=== PATIENT | female | born 1945 | race Hispanic/Latino ===

== ENCOUNTER → 2018-05-17 | Outpatient (CLI) | payer MEDICARE, OTHER ==
[~2018-05-17] MED LIST: IOPAMIDOL 370 MG/ML 200 ML INFUS..BTL INJ ONE; SODIUM CHLORIDE 0.9% 50ML 50 ML ONE
[2018-05-17 09:28] LABS: BLOOD UREA NITROGEN 11 mg/dL (7-26); BUN/CREATININE RATIO 13 (6-25); CREATININE, SERUM 0.82 mg/dL (0.57-1.11); EST GLOMERULAR FILTRATION RATE > 60 ML/MIN (60-)
--- NOTE | 2018-05-17 11:31 | Diagnostic Imaging Report ---
EXAMINATION: CT of the abdomen with and without contrast. TECHNIQUE: Spiral CT images of the abdomen were performed from the lung bases to the iliac crests before and after the intravenous administration of 100 cc of Isovue-[id number]. Delayed phase images were obtained per adrenal mass protocol.. Coronal and sagittal reformatted images were obtained. COMPARISON: CT abdomen and pelvis without contrast 07/01/2015 CLINICAL HISTORY:Neoplasm of adrenal gland DISCUSSION: LOWER THORAX:Unremarkable. HEPATOBILIARY: No focal hepatic lesions. No biliary ductal dilatation. The gallbladder is normal. SPLEEN: No splenomegaly. PANCREAS: No focal masses or ductal dilatation. ADRENALS: As before, there is a well-circumscribed nodule arising from the lateral limb of the left adrenal gland, containing internal macroscopic fat as seen on series 5 image 25. On the current examination the lesion measures 1.9 cm AP x 1.6 cm transverse x 1.4 cm craniocaudal (previously 1.9 cm AP x 1.5 cm transverse x 1.4 cm craniocaudal). No new adrenal lesions. KIDNEYS/URETERS: No hydronephrosis, stones, or solid mass lesions. PERITONEUM/RETROPERITONEUM: No free air or fluid. LYMPH NODES: No mesenteric root or upper retroperitoneal lymphadenopathy. VESSELS: Atherosclerotic calcification of the abdominal aorta and major branch vessels without aneurysmal dilatation. Portal vein and splenic vein are patent. GI TRACT: Visualized portions of the small and large bowel shows no distention or wall thickening BONES AND SOFT TISSUE: No osseous destructive lesions. Multilevel degenerative disc changes and facet arthropathy of the lumbar spine IMPRESSION: Previously described benign left adrenal myelolipoma is stable in size relative to 07/01/2015 when accounting for differences in slice selection (1.9 cm in greatest dimension). Signed by: Dr. Kiko uDmont M.D. on 05/17/2018 11:28 AM
== END ==
LOC: CT 08:19
PROVIDERS: ATTEND Urology
DX: D44.10 Neoplasm of uncertain behavior of unspecified adrenal gland (principal)
CPT/HCPCS: 36415; 74170; 82565; 84520; Q9967

== ENCOUNTER → 2018-11-07 | Outpatient (CLI) | payer MEDICARE, OTHER ==
--- NOTE | 2018-11-07 16:28 | Diagnostic Imaging Report ---
EXAM: CT Abdomen and Pelvis WITHOUT intravenous contrast INDICATION: Follow-up of adrenal lesion COMPARISON: CT abdomen and pelvis of 05/17/2018, 07/01/2015 TECHNIQUE: Abdomen and pelvis were scanned utilizing a multidetector helical scanner from the lung base to the pubic symphysis without administration of IV contrast. Coronal and sagittal reformations were obtained. Routine protocol was performed. Scan was performed when during portal venous phase. IV CONTRAST: None ORAL CONTRAST: Water COMPLICATIONS: None RADIATION DOSE: Total DLP: 529.64 mGy*cm Estimated effective dose: (DLP x 0.015 x size factor) mSv Dose modulation, iterative reconstruction, and/or weight based adjustment of the mA/kV was utilized to reduce the radiation dose to as low as reasonably achievable. FINDINGS: LOWER THORAX: Right middle lobe pulmonary nodules measuring up to 4 mm are stable dating back to 07/01/2015. No focal consolidation. HEPATOBILIARY: No focal hepatic lesions. No biliary ductal dilatation. The gallbladder appears unremarkable. SPLEEN: No splenomegaly. PANCREAS: No focal masses or ductal dilatation. ADRENALS: Again seen is a 2.3 cm lesion arising from the lateral aspect of the left adrenal gland which contains macroscopic fat. The lesion is unchanged in size and appearance dating back to at least 07/01/2015 and is consistent with a myelolipoma. No right adrenal mass. KIDNEYS/URETERS: No hydronephrosis, stones, or solid mass lesions. PELVIC ORGANS/BLADDER: The bladder is decompressed. Status post hysterectomy. PERITONEUM / RETROPERITONEUM: No free air or fluid. LYMPH NODES: No lymphadenopathy. VESSELS: Atherosclerotic calcifications involve the abdominal aorta and major branches. GI TRACT: No focal bowel wall thickening or bowel distention. Incidental note is made of a duodenal diverticulum. BONES AND SOFT TISSUES: Mild degenerative changes of the visualized spine. No fracture or dislocation. No suspicious lytic or blastic lesions. IMPRESSION: Stable left adrenal 2.3 cm fat-containing mass, consistent with myelolipoma. No further follow-up is needed. Stable right middle lobe pulmonary nodules. Signed by: Nidhi Briggs MD on 11/07/2018 4:25 PM
== END ==
LOC: CT 14:40
PROVIDERS: ATTEND Urology
DX: D44.10 Neoplasm of uncertain behavior of unspecified adrenal gland (principal)
CPT/HCPCS: 74176